=== PATIENT | female | born 1975 | race Caucasian/White ===

== ENCOUNTER 2019-07-21 12:57 | Emergency (ER) | payer BC ==
[2019-07-21 14:02] LABS: ALT (SGPT) 14 U/L (8-55); AST (SGOT) 15 U/L (5-34); Albumin 4.1 g/dL (3.5-5.0); Alkaline Phosphatase 70 U/L (40-110); Anion Gap 11 mmol/L (10-20); BUN (Urea Nitrogen) 10 mg/dL (7.0-18.7); Bilirubin, Total 0.5 mg/dL (0.2-1.2); CK (CPK) 165 U/L (29-168); Calc. Creatinine Clearance 0 mL/min (70-130); Calcium 9.2 mg/dL (7.8-10.44); Carbon Dioxide 25 mmol/L (22-29); Chloride 104 mmol/L (98-107); Estimated GFR-MDRD 78; Globulin 2.9 g/dL (2.4-3.5); Glucose 92 mg/dL (70-105); Potassium 3.4 mmol/L (3.5-5.1); Sodium 137 mmol/L (136-145)
[2019-07-21 14:32] LABS: #Eosinphils 0.1 thou/uL (0.0-0.7); #Lymphocytes 1.5 thou/uL (1.20-3.40); #Monocytes 0.4 thou/uL (0.11-0.59); #Neutrophils 2.6 thou/uL (1.40-6.50); %Basophils 0.1 % (0.0-1.0); %Eosinophils 1.3 % (0.0-10.0); %Lymphocytes 32.3 % (21.0-51.0); %Monocytes 9.2 % (0.0-10.0); %Neutrophils 57.1 % (42.0-75.0); Hemoglobin 12.2 g/dL (12.0-16.0); Mean Corpuscular HGB CONC 36.1 g/dL (32.0-36.0); Mean Corpuscular Hemoglobin 32.7 pg (27.0-31.0); Mean Corpuscular Volume 90.6 fL (78.0-98.0); Mean Platelet Volume 6.9 fL (7.4-10.4); Platelet Count 216 thou/uL (130-400); RBC Distribution Width 12.4 % (11.5-14.5); Red Blood Cell (RBC) Count 3.74 mill/uL (4.20-5.40); White Blood Cell (WBC) Count 4.5 thou/uL (4.8-10.8)
== END 2019-07-21 14:58 | disposition home or self-care (01) ==
LOC: ERS 12:57
DX: R00.2 Palpitations (principal)
CPT/HCPCS: 36415; 80053; 82550; 84484; 85025; 93005

== ENCOUNTER 2021-06-01 13:05 | Outpatient (CLI) | payer BC | END 2021-06-01 13:06 | disposition home or self-care (01) | LOC: BICMRI 13:05 | PROVIDERS: ATTEND Orthopaedic Surgery | DX: M23.91 Unspecified internal derangement of right knee (principal); M84.461A Pathological fracture, right tibia, initial encounter for fracture ==

== ENCOUNTER 2021-07-17 14:52 | Outpatient (CLI) | payer BC ==
[2021-07-17 15:53] LABS: #Monocytes 0.3 10x3/uL (0.0-1.1); #Neutrophils 2.5 10x3/uL (1.5-8.4); %Basophils 0.5 % (0.0-2.0); %Eosinophils 0.5 % (0.0-6.0); %Lymphocytes 32.6 % (18.0-47.0); %Monocytes 7.6 % (0.0-10.0); %Neutrophils 58.6 % (40.0-75.0); Hemoglobin 13.3 g/dL (12.0-15.5); Mean Corpuscular HGB CONC 35.5 g/dL (32.0-36.0); Mean Corpuscular Hemoglobin 32.4 pg (27.0-33.0); Mean Corpuscular Volume 91.5 fl (81.6-98.3); Mean Platelet Volume 10.6 fl (7.4-10.4); Platelet Count 210 10x3/uL (150-450); White Blood Cell (WBC) Count 4.3 10x3/uL (3.5-10.5)
[2021-07-17 16:24] LABS: Anion Gap 12 mmol/L (10-20); BUN (Urea Nitrogen) 11 mg/dL (7.0-18.7); Calc. Creatinine Clearance 0 mL/min (70-130); Calcium 9.8 mg/dL (7.8-10.44); Carbon Dioxide 24 mmol/L (22-29); Chloride 107 mmol/L (98-107); Glucose 84 mg/dL (70-105); Potassium 3.7 mmol/L (3.5-5.1); Sodium 139 mmol/L (136-145)
[2021-07-18 16:49] LABS: SARS-CoV-2 PCR by NAA Not Detected (NotDetected)
== END 2021-07-17 14:53 | disposition home or self-care (01) ==
LOC: LABBT 14:52
PROVIDERS: ATTEND Orthopaedic Surgery
DX: Z01.812 Encounter for preprocedural laboratory examination (principal); M23.91 Unspecified internal derangement of right knee; Z20.822 Contact with and (suspected) exposure to COVID-19
CPT/HCPCS: 80048; 85025; U0003; U0005

== ENCOUNTER 2021-07-22 07:34 | Day surgery (SDC) | payer BC ==
[2021-07-21 10:13] VITALS: BMI 25.8
[2021-07-22] MEDS ORDERED: Fentanyl 100 MCG/2 ML VIAL ONE ×3 (08:02→10:23)
[2021-07-22] MEDS ORDERED: Midazolam HCl 2 mg/2 ml Vial ONE ×2 (08:02→08:15)
[2021-07-22] MEDS ORDERED: ceFAZolin 2 GM/DEX 5% 100 ML BAG ONE (08:16)
[2021-07-22] MEDS ORDERED: EPINEPHrine 1 MG/ML AMP ONE (09:15)
[2021-07-22] MEDS ORDERED: Bupivacaine 0.25% HCL 30 ML VIAL ONE (09:15)
[2021-07-22] MEDS ORDERED: Bupivacaine PF 0.5% 30 ML VIAL ONE (09:15)
[2021-07-22] MEDS ORDERED: Ondansetron PF 4 MG/2 ML Vial ONE (09:30)
[2021-07-22] MEDS ORDERED: ePHEDrine 50 MG/ML VIAL ONE (09:30)
[2021-07-22] MEDS ORDERED: PHENYLEPHRINE-NS 100 MCG/ML 10 ML SYRINGE ONE (09:30)
[2021-07-22] MEDS ORDERED: Ketorolac Tromethamine 30 MG/ML VIAL ONE (09:30)
[2021-07-22] MEDS ORDERED: Bupivacaine HCl 0.5%/Epinephrine 1:200,000/PF 30 ml Vial ONE (09:30)
[2021-07-22] MEDS ORDERED: Lidocaine 1% PF 5 ML VIAL ONE (09:30)
[2021-07-22] MEDS ORDERED: Lidocaine 2% w/Epinephrine 1:200K 20 ML VIAL ONE (09:30)
[2021-07-22] MEDS ORDERED: PROPOFOL 200 MG/20 ML VIAL ONE (09:30)
[2021-07-22] MEDS ORDERED: Dexamethasone 20 MG/5 ML VIAL ONE (09:30)
== END 2021-07-22 13:20 | disposition home or self-care (01) ==
LOC: SDC 07:34
PROVIDERS: ATTEND Orthopaedic Surgery
PROC: 0SBC4ZZ Excision of Right Knee Joint, Percutaneous Endoscopic Approach (ICD-10-PCS; principal; 2021-07-22)
DX: M17.11 Unilateral primary osteoarthritis, right knee (principal); M23.8X1 Other internal derangements of right knee; Z79.899 Other long term (current) drug therapy; Z88.8 Allergy status to other drugs, medicaments and biological substances; Z98.890 Other specified postprocedural states
CPT/HCPCS: J0171; J1100; J1885; J2250; J2405; J2704; J3010; J3490; S0020

== ENCOUNTER 2021-08-12 09:47 | Outpatient (CLI) | payer BC | END 2021-08-12 09:48 | disposition home or self-care (01) | LOC: BICMAMMO 09:47 | PROVIDERS: ATTEND Student in an Organized Health Care Education/Training Program | DX: N63.10 Unspecified lump in the right breast, unspecified quadrant (principal); N63.20 Unspecified lump in the left breast, unspecified quadrant | CPT/HCPCS: 77066; G0279 ==

== ENCOUNTER 2022-02-24 16:30 | Outpatient (CLI) | payer BC | END 2022-02-24 16:31 | disposition home or self-care (01) | LOC: SLEEPLAB 16:30 | PROVIDERS: ATTEND Internal Medicine Critical Care Medicine | DX: G47.33 Obstructive sleep apnea (adult) (pediatric) (principal); R06.83 Snoring; G47.00 Insomnia, unspecified; R63.4 Abnormal weight loss; F51.4 Sleep terrors [night terrors]; G47.9 Sleep disorder, unspecified; G47.10 Hypersomnia, unspecified | CPT/HCPCS: 95800 ==

== ENCOUNTER 2022-09-08 12:41 | Outpatient (CLI) | payer BC | END 2022-09-08 12:42 | disposition home or self-care (01) | LOC: RAD 12:41 | PROVIDERS: ATTEND Internal Medicine Rheumatology | DX: M47.892 Other spondylosis, cervical region (principal); M46.1 Sacroiliitis, not elsewhere classified; M54.2 Cervicalgia | CPT/HCPCS: 72040; 72202 ==

== ENCOUNTER 2022-10-06 13:09 | Outpatient (CLI) | payer BC | END 2022-10-06 13:10 | disposition home or self-care (01) | LOC: BICRAD 13:09 | PROVIDERS: ATTEND Internal Medicine Rheumatology | DX: M54.50 Low back pain, unspecified (principal); M47.816 Spondylosis without myelopathy or radiculopathy, lumbar region | CPT/HCPCS: 72100 ==

== ENCOUNTER 2023-01-11 18:25 | Emergency (ER) | payer BC | END 2023-01-11 19:52 | disposition home or self-care (01) | LOC: ERS 18:25 | DX: M25.561 Pain in right knee (principal); R21 Rash and other nonspecific skin eruption ==

== ENCOUNTER 2023-01-18 13:16 | Outpatient (CLI) | payer BC | END 2023-01-18 13:17 | disposition home or self-care (01) | LOC: BICMAMMO 13:16 | PROVIDERS: ATTEND Student in an Organized Health Care Education/Training Program | DX: N63.10 Unspecified lump in the right breast, unspecified quadrant (principal); N60.01 Solitary cyst of right breast | CPT/HCPCS: 77066; G0279 ==

== ENCOUNTER 2023-11-16 14:38 | Outpatient (CLI) | payer BC | END 2023-11-16 14:39 | disposition home or self-care (01) | LOC: BICMAMMO 14:38 | PROVIDERS: ATTEND Specialist | DX: N63.20 Unspecified lump in the left breast, unspecified quadrant (principal); N60.02 Solitary cyst of left breast | CPT/HCPCS: 77066; G0279 ==

== ENCOUNTER 2024-02-13 16:00 | Outpatient (CLI) | payer BC | END 2024-02-13 16:01 | disposition home or self-care (01) | LOC: SLEEPLAB 16:00 | PROVIDERS: ATTEND Internal Medicine Critical Care Medicine | DX: G47.33 Obstructive sleep apnea (adult) (pediatric) (principal); R53.83 Other fatigue; R06.83 Snoring; G47.52 REM sleep behavior disorder; G47.00 Insomnia, unspecified | CPT/HCPCS: 95800 ==

== ENCOUNTER 2024-07-27 13:19 | Outpatient (CLI) | payer BC | END 2024-07-27 13:20 | disposition home or self-care (01) | LOC: MRI 13:19 | PROVIDERS: ATTEND Orthopaedic Surgery | DX: S73.191A Other sprain of right hip, initial encounter (principal); M70.61 Trochanteric bursitis, right hip; M25.451 Effusion, right hip ==

== ENCOUNTER 2024-08-28 11:21 | Outpatient (CLI) | payer BC | END 2024-08-28 11:22 | disposition home or self-care (01) | LOC: LABBT 11:21 | PROVIDERS: ATTEND Student in an Organized Health Care Education/Training Program | DX: Z01.818 Encounter for other preprocedural examination (principal); S76.011A Strain of muscle, fascia and tendon of right hip, initial encounter | CPT/HCPCS: 71046 ==

== ENCOUNTER 2024-09-04 05:53 | Day surgery (SDC) | payer BC ==
[2024-08-28 12:02] VITALS: BMI 30.7
[2024-09-04] MEDS ORDERED: CEFAZOLIN 2 GM VIAL ONE (06:42)
[2024-09-04] MEDS ORDERED: Tranexamic Acid 1,000 MG/10 ML VIAL ONE (06:42)
[2024-09-04] MEDS ORDERED: Sodium Chloride 0.9% 200 ML ONE (06:42)
[2024-09-04] MEDS ORDERED: EPINEPHrine 1 MG/ML VIAL ONE (06:54)
[2024-09-04] MEDS ORDERED: Bupivacaine 0.25% HCL 30 ML VIAL ONE ×2 (06:54→07:06)
[2024-09-04] MEDS ORDERED: fentaNYL PF 100 MCG/2 ML SYRINGE ONE ×2 (07:01→09:30)
[2024-09-04] MEDS ORDERED: PROPOFOL 20 ML ONE (07:01)
[2024-09-04] MEDS ORDERED: Lidocaine 1% PF 5 ML VIAL ONE (07:02)
[2024-09-04] MEDS ORDERED: Rocuronium Bromide 10 MG/ML (10ML VIAL) ONE (07:02)
[2024-09-04] MEDS ORDERED: Dexamethasone 20 MG/5 ML VIAL ONE (07:25)
[2024-09-04] MEDS ORDERED: Ondansetron PF 4 MG/2 ML Vial ONE (07:25)
[2024-09-04] MEDS ORDERED: ePHEDrine Sulfate 50 MG/10 ML VIAL ONE (07:46)
[2024-09-04] MEDS ORDERED: SUGAMMADEX SODIUM 200 MG/2 ML VIAL ONE (08:51)
[2024-09-04] MEDS ORDERED: fentaNYL 50 mcg/mL 1 mL Vial ONE (09:17)
[2024-09-04] MEDS ORDERED: HYDROmorphone 0.5 MG/0.5 ML SYRINGE ONE ×2 (09:30→09:49)
[2024-09-04] MEDS ORDERED: HYDROcodone/Acetaminophen 5/325 mg Tablet ONE (13:27)
== END 2024-09-04 14:50 | disposition home or self-care (01) ==
LOC: SDC 05:53
PROVIDERS: ATTEND Student in an Organized Health Care Education/Training Program
PROC: 0LQJ0ZZ Repair Right Hip Tendon, Open Approach (ICD-10-PCS; principal; 2024-09-04)
DX: S76.011A Strain of muscle, fascia and tendon of right hip, initial encounter (principal); Z88.5 Allergy status to narcotic agent; X58.XXXA Exposure to other specified factors, initial encounter
CPT/HCPCS: C1713; J0171; J0665; J1100; J2405; J2704; J3010; Q4125

== ENCOUNTER 2024-11-29 08:54 | Outpatient (CLI) | payer BC | END 2024-11-29 08:55 | disposition home or self-care (01) | LOC: BICMAMMO 08:54 | PROVIDERS: ATTEND Specialist | DX: Z12.31 Encounter for screening mammogram for malignant neoplasm of breast (principal) | CPT/HCPCS: 77063; 77067 ==

== ENCOUNTER 2025-07-16 15:01 | Outpatient (CLI) | payer BC | END 2025-07-16 15:02 | disposition home or self-care (01) | LOC: BICMRI 15:01 | PROVIDERS: ATTEND Orthopaedic Surgery | DX: M54.12 Radiculopathy, cervical region (principal); M48.02 Spinal stenosis, cervical region | CPT/HCPCS: 72141 ==